=== PATIENT | male | born 1970 | race Caucasian/White ===

== ENCOUNTER 2020-06-26 06:02 | Emergency (ER) | payer BC ==
[~2020-06-26] VITALS: Ht 177.8 cm; Wt 91.0 kg
[~2020-06-26 06:02] MED LIST: GEN0.3OS OP; METO5TAB98 PO; OMEP-84 PO; SUCR1TAB28 PO; ZOF4T PO
[2020-06-26 06:42] LABS: BASOPHILS % (AUTO) 0.2 % (0-1); EOSINOPHILS % (AUTO) 0 % (0-6); HEMATOCRIT 42.1 % (42.0-52.0); HEMOGLOBIN 13.8 g/dl (14.0-17.9); LYMPHOCYTES % (AUTO) 6.9 % (21-51); MEAN CORPUSCULAR HEMOGLOBIN 28.1 PG (27.0-31.0); MEAN CORPUSCULAR HGB CONC 32.8 g/dL (33.0-36.5); MEAN CORPUSCULAR VOLUME 85.8 FL (78-98); MEAN PLATELET VOLUME 8.3 FL (7.4-10.4); MONOCYTES # (AUTO) 0.4 X10'3 (0-0.9); MONOCYTES % (AUTO) 2.9 % (2-12); NEUTROPHILS # (AUTO) 12.8 X10'3 (1.8-7.7); PLATELET COUNT 263 X10'3 (140-440); RED BLOOD COUNT 4.91 X10'6 (4.70-6.10); RED CELL DISTRIBUTION WIDTH 12.5 % (11.5-14.5); WHITE BLOOD COUNT 14.2 X10'3 (4.5-11.0)
[2020-06-26 06:45] LABS: ALANINE AMINOTRANSFERASE 23 U/L (12-78); ALBUMIN 4.1 G/DL (3.4-5.0); ALKALINE PHOSPHATASE 68 IU/L (46-116); ANION GAP 8 (8-16); ASPARTATE AMINO TRANSFERASE 17 U/L (10-37); BILIRUBIN,TOTAL 0.9 MG/DL (0.1-1.0); BLOOD UREA NITROGEN 12 MG/DL (7-18); BUN/CREATININE RATIO 11.5 (5.4-32.0); CALCIUM 9.3 MG/DL (8.5-10.1); CHLORIDE 102 MMOL/L (99-107); CREATININE 1.04 MG/DL (0.60-1.10); GLUCOSE 197 MG/DL (70-104); LIPASE 94 U/L (73-393); POTASSIUM 3.9 MMOL/L (3.5-5.1); SODIUM 136 MMOL/L (135-145); TOTAL CARBON DIOXIDE 25.6 MMOL/L (24-32); TOTAL PROTEIN 8.3 G/DL (6.4-8.2); eGFR 76 ML/MIN
[2020-06-26] MEDS ORDERED: ondansetron/PF 4mg/2ml inj IV ONE (06:45)
[2020-06-26] MEDS ORDERED: LORazepam 2 mg/ml vial IV ONE (06:45)
[2020-06-26] MEDS ORDERED: pantoprazole 40 MG vial IV ONE (06:45)
[2020-06-26] MEDS ORDERED: normal saline 1000ML IV soln IVB ONE (06:45)
[2020-06-26] MEDS ORDERED: ONDA8TAB13 PO (09:27)
[2020-06-26] MEDS ORDERED: PANT-47 PO (09:27)
[2020-06-26 10:03] VITALS: BP 132/90
--- NOTE | 2020-06-26 10:05 | NUR ---
Attempted to call pt's sig other, Chelsie, at the number provided. No answer; left message
== END 2020-06-26 10:40 | disposition home or self-care (01) ==
LOC: ER 06:02
DX: R10.13 Epigastric pain (principal); R11.2 Nausea with vomiting, unspecified; R10.31 Right lower quadrant pain; R10.32 Left lower quadrant pain; K21.9 Gastro-esophageal reflux disease without esophagitis; Z72.89 Other problems related to lifestyle; Z79.2 Long term (current) use of antibiotics; Z79.899 Other long term (current) drug therapy
CPT/HCPCS: 36415; 71045; 80053; 83690; 85025; 96361; 96374; 96375; 99284; C9113; J2060; J2405; J7030; 99285

== ENCOUNTER 2024-05-01 20:15 | Inpatient (IN) | payer BC ==
[~2024-05-01] VITALS: Ht 177.8 cm; Wt 93.2 kg
[~2024-05-01 20:15] MED LIST changes: +ONDA-245 PO; +PANT-47 PO
[2024-05-01] MEDS: proCHLORperazine 10 MG/2 ml inj IV ONE (21:10)
[2024-05-01] MEDS: famotidine/PF 10 mg/ml inj IV ONE (21:13)
[2024-05-01] MEDS: LIDOcaine 2% Viscous 15ml cup MM ONE (21:14)
[2024-05-01] MEDS: mag hydrox/Alum hydrox/simeth 30ml oral suspension PO ONE (21:14)
[2024-05-01 21:21] LABS: BASOPHILS % (AUTO) 0.2 % (0-1); EOSINOPHILS % (AUTO) 0 % (0-6); HEMATOCRIT 43.9 % (42.0-52.0); HEMOGLOBIN 14.6 g/dl (14.0-17.9); LYMPHOCYTES # (AUTO) 0.9 X10'3 (1.1-4.8); LYMPHOCYTES % (AUTO) 5.4 % (21-51); MEAN CORPUSCULAR HEMOGLOBIN 28.6 PG (27.0-31.0); MEAN CORPUSCULAR HGB CONC 33.2 g/dL (33.0-36.5); MEAN PLATELET VOLUME 7.8 FL (7.4-10.4); MONOCYTES # (AUTO) 0.3 X10'3 (0-0.9); MONOCYTES % (AUTO) 1.7 % (2-12); NEUTROPHILS # (AUTO) 15.9 X10'3 (1.8-7.7); NEUTROPHILS % (AUTO) 92.7 % (42-75); PLATELET COUNT 289 X10'3 (140-440); RED CELL DISTRIBUTION WIDTH 13.1 % (11.5-14.5); WHITE BLOOD COUNT 17.2 X10'3 (4.5-11.0)
[2024-05-01 21:40] LABS: ALANINE AMINOTRANSFERASE 15 U/L (12-78); ALBUMIN 4.1 G/DL (3.4-5.0); ALKALINE PHOSPHATASE 59 IU/L (46-116); ANION GAP 12 (8-16); ASPARTATE AMINO TRANSFERASE 17 U/L (10-37); BLOOD UREA NITROGEN 11 MG/DL (7-18); BUN/CREATININE RATIO 9.3 (10.0-20.0); CALCIUM 9.4 MG/DL (8.5-10.1); CHLORIDE 100 MMOL/L (99-107); CREATININE 1.18 MG/DL (0.60-1.10); GLUCOSE 166 MG/DL (70-104); SODIUM 135 MMOL/L (135-145); TOTAL CARBON DIOXIDE 23.2 MMOL/L (24-32); TOTAL PROTEIN 8.4 G/DL (6.4-8.2); eCRCL 76 ML/MIN; eGFR 65 ML/MIN
[2024-05-01 21:46] LABS: PRO BRAIN NATRIURETIC PEPTIDE 276 PG/ML (0-125)
[2024-05-01] MEDS: LORazepam 2 mg/ml vial IV ONE (22:15)
[2024-05-01] MEDS: normal saline 1000ml 1,000 ML IV ONE (22:15)
[2024-05-01] MEDS: fentaNYL/PF 50MCG/1 ML 2ML syringe IV ONE (22:16)
[2024-05-02] MEDS ORDERED: magnesium Cl slow-release 64mg tablet PO PRN (01:30)
[2024-05-02] MEDS ORDERED: potassium Cl 20 mEq SR tablet PO PRN ×2 (01:30)
[2024-05-02] MEDS ORDERED: potassium Cl 40MEQ/1/2NS 520ml 520 ML IV PRN (01:30)
[2024-05-02] MEDS ORDERED: HYDROcodone/acetaminophen 5mg/325mg tablet PO PRN (01:30)
[2024-05-02] MEDS ORDERED: mag hydrox/Alum hydrox/simeth 30ml oral suspension PO PRN (01:30)
[2024-05-02] MEDS ORDERED: magnesium sulf-water 2g/50mL 50 ML IV PRN (01:30)
[2024-05-02] MEDS ORDERED: acetaminophen 325mg tablet PO PRN ×2 (01:30)
[2024-05-02] MEDS ORDERED: magnesium sulf-water 4G/100mL 100 ML IV PRN (01:30)
[2024-05-02] MEDS ORDERED: metoclopramide 5 mg/ml inj IV PRN (01:30)
[2024-05-02] MEDS ORDERED: METH-603 PO (01:52)
[2024-05-02] MEDS ORDERED: ATOR20TA66 PO (01:53)
[2024-05-02] MEDS: normal saline 1000ml 1,000 ML IV SCH (02:30)
[2024-05-02 02:40] LABS: URINE AMPHETAMINE SCREEN NEGATIVE (Neg); URINE BARBITUATE SCREEN NEGATIVE (Neg); URINE BENZODIAZEPINES SCREEN NEGATIVE (Neg); URINE CANNABINOID SCREEN POSITIVE (Neg); URINE COCAINE SCREEN NEGATIVE (Neg); URINE METHADONE SCREEN POSITIVE (Neg); URINE OPIATE SCREEN NEGATIVE (Neg); URINE PHENCYCLIDINE SCREEN NEGATIVE (Neg)
[2024-05-02] MEDS: ondansetron/PF 4mg/2ml inj IV PRN (02:41)
[2024-05-02] MEDS: HYDROcodone/acetaminophen 10/325mg tab PO PRN (02:42)
[2024-05-02] MEDS ORDERED: ONDA-245 PO (02:42)
[2024-05-02 03:16] VITALS: RESP 18; O2SAT 98
[2024-05-02 03:32] VITALS: BP 137/79; PULSE 52; RESP 18; TEMP 98; O2SAT 98
[2024-05-02 06:00] VITALS: BP 123/75; PULSE 67; RESP 16; TEMP 98.9; O2SAT 98
[2024-05-02 06:19] LABS: MAGNESIUM 1.8 MG/DL (1.5-2.4); POTASSIUM 3.6 MMOL/L (3.5-5.1)
[2024-05-02 06:43] LABS: HEMOGLOBIN A1C 5.3 % (4.5-6.2)
[2024-05-02] MEDS: pantoprazole 40 MG vial IV SCH ×2 (07:24→13:13)
[2024-05-02] MEDS: K and/or MAG REPLACEMENT MC SCH (07:25)
[2024-05-02 10:00] VITALS: BP 98/43; PULSE 56; RESP 16; TEMP 99.6; O2SAT 98
[2024-05-02] MEDS: methadone 10mg tablet PO SCH (13:13)
[2024-05-02 18:00] VITALS: BP 102/59; PULSE 53; RESP 16; TEMP 97.6; O2SAT 96
[2024-05-02] MEDS ORDERED: methadone 10mg tablet PO SCH (20:00)
[2024-05-02 21:05] LABS: TOTAL CELLS COUNTED 100
[2024-05-02 21:07] LABS: PLATELET ESTIMATE NORMAL
[2024-05-02 22:00] VITALS: BP 108/61; PULSE 51; RESP 16; TEMP 97.8; O2SAT 98
[2024-05-02 23:34] LABS: BILIRUBIN,URINE NEGATIVE (Neg); CLARITY,URINE CLEAR (Clear); COLOR,URINE YELLOW (Yellow); GLUCOSE, URINE NEGATIVE (Neg); KETONES,URINE NEGATIVE (Neg); LEUKOCYTE ESTERASE ,URINE NEGATIVE (Neg); NITRITES, URINE NEGATIVE (Neg); OCCULT BLOOD,URINE NEGATIVE (Neg); PROTEIN,URINE NEGATIVE (Neg); UROBILINOGEN,URINE 0.2 E.U/dL (0.2-1.0)
[2024-05-02 23:39] LABS: UA COLLECTION TYPE NON-SPECIFIED
[2024-05-03 06:00] VITALS: BP 126/82; PULSE 51; RESP 16; TEMP 97.2; O2SAT 97
[2024-05-03 07:25] LABS: ALBUMIN 3.1 G/DL (3.4-5.0); ANION GAP 9 (8-16); BLOOD UREA NITROGEN 8 MG/DL (7-18); BUN/CREATININE RATIO 8.8 (10.0-20.0); CHLORIDE 107 MMOL/L (99-107); CREATININE 0.91 MG/DL (0.60-1.10); GLUCOSE 78 MG/DL (70-104); MAGNESIUM 1.8 MG/DL (1.5-2.4); PHOSPHORUS 2.6 MG/DL (2.3-4.5); POTASSIUM 3.9 MMOL/L (3.5-5.1); SODIUM 138 MMOL/L (135-145); TOTAL CARBON DIOXIDE 21.6 MMOL/L (24-32); eCRCL 98 ML/MIN; eGFR 87 ML/MIN
[2024-05-03 08:07] LABS: BASOPHILS # (AUTO) 0.1 X10'3 (0-0.2); BASOPHILS % (AUTO) 0.6 % (0-1); EOSINOPHILS # (AUTO) 0.1 X10'3 (0-0.9); HEMATOCRIT 40.5 % (42.0-52.0); LYMPHOCYTES # (AUTO) 3.3 X10'3 (1.1-4.8); LYMPHOCYTES % (AUTO) 32.7 % (21-51); MEAN CORPUSCULAR HEMOGLOBIN 28.2 PG (27.0-31.0); MEAN CORPUSCULAR HGB CONC 32.1 g/dL (33.0-36.5); MEAN CORPUSCULAR VOLUME 87.9 FL (78-98); MEAN PLATELET VOLUME 7.5 FL (7.4-10.4); MONOCYTES # (AUTO) 0.8 X10'3 (0-0.9); MONOCYTES % (AUTO) 7.7 % (2-12); NEUTROPHILS # (AUTO) 5.9 X10'3 (1.8-7.7); PLATELET COUNT 208 X10'3 (140-440); RED BLOOD COUNT 4.61 X10'6 (4.70-6.10); RED CELL DISTRIBUTION WIDTH 12.9 % (11.5-14.5); WHITE BLOOD COUNT 10.2 X10'3 (4.5-11.0)
[2024-05-03 10:00] VITALS: BP 144/87; PULSE 55; RESP 20; TEMP 98; O2SAT 98
[2024-05-03] MEDS ORDERED: PANT40TA54 PO (12:41)
== END 2024-05-03 15:46 | disposition home or self-care (01) | DRG 391 ==
LOC: ER 20:15 → ED HOLD 05-02 01:32 → ORTHO 4S 05-02 02:35
PROVIDERS: ADMIT Surgery Surgical Critical Care; ATTEND Family Medicine
PROC: BW211ZZ Computerized Tomography (CT Scan) of Abdomen and Pelvis using Low Osmolar Contrast (ICD-10-PCS; principal; 2024-05-02)
DX: K29.00 Acute gastritis without bleeding (principal); N17.0 Acute kidney failure with tubular necrosis; D72.823 Leukemoid reaction; K21.9 Gastro-esophageal reflux disease without esophagitis; Z79.899 Other long term (current) drug therapy
CPT/HCPCS: 36415; 71045; 74176; 80048; 80053; 80305; 81003; 83036; 83735; 83880; 84100; 84132; 84145; 84484; 85007; 85025; 87081; 93005; 96374; 96375; 99285; G0378; J0780; J2060; J2405; J2470; J3010; J3490; J7030

== ENCOUNTER 2024-11-06 22:48 | Inpatient (IN) | payer BC ==
[~2024-11-06] VITALS: Ht 177.8 cm; Wt 91.0 kg
[~2024-11-06 22:48] MED LIST changes: +ATOR20TA66 PO; -GEN0.3OS OP; +METH-603 PO; -METO5TAB98 PO; -OMEP-84 PO; -PANT-47 PO; +PANT40TA54 PO; -SUCR1TAB28 PO; -ZOF4T PO
--- NOTE | 2024-11-06 22:52 | ELECTROCARDIOGRAPH REPORT ---
[facility] Test Date: 2024-11-06 Test Time: 22:49:05 Pat Name: ADELITA CSATRO Department: SHORT STAY 1ST FLOOR Room: [place] [address] Gender: M Emergency Department Aide: FINESSE : 1970 Requested By: MARELY SINGH Order Number: [id number] Reading MD: Dr. Renetta Alcaraz Measurements Intervals [place] Rate: 55 P: 64 NV: 149 QRS: 7 QRSD: 104 T: 9 QT: 462 QTc: 442 Interpretive Statements Sinus rhythm Left ventricular hypertrophy Electronically Signed On 11-07-2024 18:48:[address] Renetta Alcaraz Please click the below link to view image of tracing.
[2024-11-06 23:06] LABS: BASOPHILS # (AUTO) 0.1 X10'3 (0-0.2); BASOPHILS % (AUTO) 0.4 % (0-1); EOSINOPHILS # (AUTO) 0.1 X10'3 (0-0.9); EOSINOPHILS % (AUTO) 0.4 % (0-6); HEMATOCRIT 39.1 % (42.0-52.0); LYMPHOCYTES # (AUTO) 2.1 X10'3 (1.1-4.8); LYMPHOCYTES % (AUTO) 14.8 % (21-51); MEAN CORPUSCULAR HEMOGLOBIN 28.4 PG (27.0-31.0); MEAN CORPUSCULAR HGB CONC 33.2 g/dL (33.0-36.5); MEAN CORPUSCULAR VOLUME 85.4 FL (78-98); MEAN PLATELET VOLUME 7.6 FL (7.4-10.4); MONOCYTES # (AUTO) 0.7 X10'3 (0-0.9); MONOCYTES % (AUTO) 5.3 % (2-12); NEUTROPHILS # (AUTO) 11.3 X10'3 (1.8-7.7); NEUTROPHILS % (AUTO) 79.1 % (42-75); PLATELET COUNT 300 X10'3 (140-440); RED BLOOD COUNT 4.57 X10'6 (4.70-6.10); RED CELL DISTRIBUTION WIDTH 12.6 % (11.5-14.5); WHITE BLOOD COUNT 14.2 X10'3 (4.5-11.0)
[2024-11-06 23:19] LABS: ALANINE AMINOTRANSFERASE 17 U/L (12-78); ALBUMIN 3.7 G/DL (3.4-5.0); ALBUMIN/GLOBULIN RATIO 1.2 (1.1-1.5); ALKALINE PHOSPHATASE 62 IU/L (46-116); ANION GAP 7 (8-16); ASPARTATE AMINO TRANSFERASE 15 U/L (10-37); BILIRUBIN,TOTAL 0.5 MG/DL (0.1-1.0); BLOOD UREA NITROGEN 15 MG/DL (7-18); BUN/CREATININE RATIO 14.2 (10.0-20.0); CALCIUM 8.9 MG/DL (8.5-10.1); CHLORIDE 103 MMOL/L (99-107); CREATININE 1.06 MG/DL (0.60-1.10); GLUCOSE 165 MG/DL (70-104); POTASSIUM 3.8 MMOL/L (3.5-5.1); SODIUM 138 MMOL/L (135-145); TOTAL CARBON DIOXIDE 27.8 MMOL/L (24-32); TOTAL PROTEIN 6.9 G/DL (6.4-8.2); eCRCL 84 ML/MIN; eGFR 73 ML/MIN
[2024-11-06 23:26] LABS: PRO BRAIN NATRIURETIC PEPTIDE 93 PG/ML (0-125)
[2024-11-07] MEDS: ondansetron/PF 4mg/2ml inj IV ONE (00:28)
--- NOTE | 2024-11-07 00:32 | RADIOLOGY REPORT ---
Clinical History CP Comparison None Technique: One view Without Contrast MATTHEWADELITA, [id number] FINDINGS: The aorta is within normal limits. The heart size is within normal limits. Lungs are clear. No di screte osseous lesion is noted. IMPRESSION: No evidence of acute cardiopulmonary disease. This report was electronically signed by Jonathan Morillo MD on 11/07/2024 12:29:08 AM.
--- NOTE | 2024-11-07 01:01 | Physician Documentation ---
History of Present Illness ~ Chief Complaint: Chest Pain Stated Complaint: NAUSEA Time Seen by MD: 00:15 [facility] Medical Doctor: [facility] Mode of Arrival: EMS HPI Reviewed discharge summary April 2024 gastritis intractable nausea vomiting 54-year-old male history of cyclic vomiting/gastritis opiate use disorder on methadone presenting for several hours of vomiting. Similar to prior episodes Medication Reconciliation Allergies: Coded Allergies: No Known Allergies (Unverified , 11/07/24) Scheduled Atorvastatin Calcium (LIPITOR tablet), 1 TAB PO HS, (Reported) Methadone Hcl* (Dolophine*), 22.5 MG PO BID, (Reported) Ondansetron 8mg ODT (Ondansetron Odt), 1 TAB PO TID, (Reported) Pantoprazole Sodium (Pantoprazole Sodium), 40 MG PO BKF Past Medical History Past Medical History: Gastritis, GERD Past Surgical History: noncontributory Patient History: Patient reports no known family medical history. Alcohol Use: Occasionally Drug Use: none Lives In: Home Review of Systems All Other Systems at this time: Reviewed and Negative Physical Exam Vital Signs: Temperature: 98.6, Source: Oral, Heart Rate: 55, Respiratory Rate: 13, BP: 125/83, Pulse Oximetry: 98, Weight: 91.000 Physical Exam Nontoxic Abdomen soft mild epigastric discomfort. No guarding no rebound Neuro awake alert oriented Progress Progress Note Independent interpretation of labs show leukocytosis 30423 likely from vomiting Creatinine within normal limits Results/Orders Results/Orders Orders - MARELY SINGH MD Chest,Single View (11/06/24 22:49) Monitor (11/06/24 22:49) Saline Lock (11/06/24 22:49) Oxygen (11/06/24 22:49) Hs Troponin I W Calculations (11/07/24 01:49) * Miscellaneous Nursing Orders (11/07/24 01:36) Completed Orders - MARELY SINGH MD Chest,Single View (11/06/24 22:49) Cbc/Diff (11/06/24 22:49) PBNP (11/06/24 22:49) Electrocardiogram (11/06/24 22:49) CMP (11/06/24 22:49) Hs Troponin I W Calculations (11/06/24 22:49) Hs Troponin I W Calculations (11/07/24 00:49) Ondansetron Inj. (Zofran 4mg/2ml Vial) (11/07/24 00:20) Olanzapine Im (Zyprexa I.M. Im On (11/07/24 01:10) Pantoprazole 40mg Iv (Protonix 40mg Iv) (11/07/24 01:10) Olanzapine Im (Zyprexa I.M. Im On (11/07/24 02:45) Medications Received in ER Medications (Trade) Dose Ordered Sig/Andrés Route PRN Reason Start Time Stop Time Status Last Admin Dose Admin (Zofran 4mg/2ml vial) 4 mg ONCE ONCE IV 11/07/24 00:20 11/07/24 00:26 DC 11/07/24 00:28 4 MG (ZyPREXA I.M. IM ONLY) 5 mg ONCE ONCE IM 11/07/24 01:10 11/07/24 01:16 DC 11/07/24 01:47 5 MG (Protonix 40mg IV) 40 mg ONCE ONCE IV 11/07/24 01:10 11/07/24 01:16 DC 11/07/24 01:25 40 MG (ZyPREXA I.M. IM ONLY) 1.25 mg ONCE ONCE IM 11/07/24 02:45 11/07/24 02:49 DC 11/07/24 03:10 1.25 MG Vital Signs 11/06/24 11/06/24 11/06/24 11/07/24 22:49 22:59 23:00 01:51 Temp 98.6 98.6 98.6 Pulse 56 55 55 Resp 19 10 13 10 B/P (MAP) 125/83 125/83 (97) 128/57 (80) Pulse Ox 98 98 98 Laboratory Tests Test 11/06/24 22:55 11/07/24 00:55 White Blood Count 14.2 H Red Blood Count 4.57 L Hemoglobin 13.0 L Hematocrit 39.1 L Mean Corpuscular Volume 85.4 Mean Corpuscular Hemoglobin 28.4 Mean Corpuscular Hemoglobin Concent 33.2 Red Cell Distribution Width 12.6 Platelet Count 300 Mean Platelet Volume 7.6 Neutrophils (%) (Auto) 79.1 H Lymphocytes (%) (Auto) 14.8 L Monocytes (%) (Auto) 5.3 Eosinophils (%) (Auto) 0.4 Basophils (%) (Auto) 0.4 Neutrophils # (Auto) 11.3 H Lymphocytes # (Auto) 2.1 Monocytes # (Auto) 0.7 Eosinophils # (Auto) 0.1 Basophils # (Auto) 0.1 CBC Comment Sodium Level 138 Potassium Level 3.8 Chloride Level 103 Carbon Dioxide Level 27.8 Anion Gap 7 L Blood Urea Nitrogen 15 Creatinine 1.06 Estimated GFR/1.73 m2 73 BUN/Creatinine Ratio 14.2 Glucose Level 165 H Calcium Level 8.9 Total Bilirubin 0.5 Aspartate Amino Transf (AST/SGOT) 15 Alanine Aminotransferase (ALT/SGPT) 17 Alkaline Phosphatase 62 Troponin I High Sensitivity 5 5 Pro-B-Type Natriuretic Peptide 93 Total Protein 6.9 Albumin 3.7 Globulin 3.2 Albumin/Globulin Ratio 1.2 Chemistry Comments Troponin I High Sens Percent Delta 0 Troponin I Hi Sens Absolute Change 0 EKG/XRAY/CT/US/VASC/MRI EKG : Additional Comment EKG independently interpreted by myself time 10:49 p.m. indication chest pain sinus bradycardia rate 55 normal axis normal intervals no ST or T-wave abnormality Medical Decision Making Additional info obtained from: old records Additional Information Gastroenteritis, gastritis, gastroparesis, cyclic vomiting Departure Disposition: HOME / SELF CARE / HOMELESS Impression: Primary Impression: Intractable vomiting Additional Instructions: Continue taking the medications I prescribed you. They will help with your symptoms. Return to the emergency department if you have any worsening of your symptoms Referrals: NO PRIMARY CARE PROVIDER (PCP) Prescriptions Olanzapine* (Zyprexa Zydis Odt*) 5 Mg Tab.rapdis 1 TAB PO Q8H PRN for nausea/vomiting for 10 Days, #30 TAB Prov: MARELY SINGH MD 11/07/24 Signature Scribe Signature: na Attestation: MARELY Wang MD November 07, 2024 01:01
[2024-11-07] MEDS: pantoprazole 40 MG vial IV ONE (01:25)
[2024-11-07] MEDS: OLANZapine **IM** 10 mg inj. IM ONE ×3 (01:47→04:33)
[2024-11-07] MEDS ORDERED: OLAN5TAB5 PO (03:14)
[2024-11-07] MEDS ORDERED: acetaminophen 325mg tablet PO PRN (05:00)
[2024-11-07] MEDS ORDERED: potassium Cl 40MEQ/1/2NS 520ml 520 ML IV PRN (05:00)
[2024-11-07] MEDS ORDERED: magnesium sulf-water 4G/100mL 100 ML IV PRN (05:00)
[2024-11-07] MEDS ORDERED: potassium Cl 20 mEq SR tablet PO PRN ×2 (05:00)
[2024-11-07] MEDS ORDERED: magnesium sulf-water 2g/50mL 50 ML IV PRN (05:00)
[2024-11-07] MEDS ORDERED: magnesium Cl slow-release 64mg tablet PO PRN (05:00)
[2024-11-07] MEDS: LIDOcaine 2% Viscous 15ml cup MM ONE (05:01)
[2024-11-07] MEDS: mag hydrox/Alum hydrox/simeth 30ml oral suspension PO ONE (05:01)
--- NOTE | 2024-11-07 05:11 | HISTORY AND PHYSICAL-Residence ---
History & Physical Providers to CC Resident Creating Document: ANYA ZARAGOZA, AARON ~ History of Present Illness Primary Medical Doctor: [facility] Reason for Admit\Complaint: Intractable vomiting History of Present Illness This is a 54-year-old male with a history of gastritis came to the ER with a chief complaint of abdominal pain, nausea, vomiting. The vomiting started yesterday about 4:00 p.m., he had more than 20 episodes of vomiting. The content of vomiting is food and water, denies any blood in the vomiting. The abdominal pain soon followed, located in the epigastric region, graded 10/10, sharp and burning type, nonradiating. Denies any fever. He denied any recent travel history. Also denied contact with people with similar complaints. He mentioned that he had an a burger for lunch yesterday. He presented with similar complaints in April 2024, denies any intermittent episodes between these two admissions. Allergies: Coded Allergies: No Known Allergies (Unverified , 11/07/24) Home Medications Home Medications Active Zyprexa Zydis Odt* (Olanzapine) 5 Mg Tab.rapdis 1 Tab PO Q8H PRN 10 Days Pantoprazole Sodium 40 Mg Tablet.dr 40 Mg PO BKF 30 Days Reported LIPITOR tablet (Atorvastatin Calcium) 20 Mg Tablet 1 Tab PO HS 30 Days Dolophine* (Methadone HCl) 10 Mg Tablet 22.5 Mg PO BID 5 Days Past Medical History Past Medical History Gastritis Past Surgical History Surgical History Comment None FAMILY HISTORY History of heart attack in mother Family History Family History: Patient reports no known family medical history. Past Social History Social History Comment Denies any history of smoking Drinks alcohol occasionally, last drink a week ago, drank two shots Denies any history of drug use including marijuana lives with his partner. Smoking: Cigarettes Alcohol Use: Occasionally Drug Use: None Lives In: Home ROS All Other Systems: Reviewed and Negative Constitutional: Denies: no symptoms reported, see HPI, chills, diaphoresis, fever, malaise, weakness, other Eyes: Denies: no symptoms reported, see HPI, pain, discharge, blurred vision, double vision, itching, photophobia, redness, tearing, other ENT: Denies: no symptoms reported, see HPI, ear pain, ear bleeding, ear discharge, hearing loss, ear ringing, nose pain, nose bleeding, nose congestion, nose discharge, throat pain, throat swelling, voice change, mouth pain, mouth bleeding, mouth swelling, other Respiratory: Denies: no symptoms reported, see HPI, cough, orthopnea, shortness of breath, SOB with exertion, SOB at rest, stridor, wheezing, hemoptysis, pain with breathing, other Cardiovascular: Denies: no symptoms reported, see HPI, chest pain, left arm pain, diaphoresis, lightheadedness, syncope, edema, palpitations, irregular heart rate, other Gastrointestinal: Reports: abdominal pain, nausea, vomiting Genitourinary: Denies: no symptoms reported, see HPI, burning, discharge, dysuria, frequency, flank pain, hematuria, incontinence, pain, decreased urine output, urgency, other Male Genitalia: Denies: no symptoms reported, see HPI, penile discharge, penile sore, testicular pain, testicular swelling, other Neurological: Denies: no symptoms reported, see HPI, speech problem, headache, dizziness, fainting, tingling, left sided numbness, right sided numbness, left sided weakness, right sided weakness, problems walking, unable to move lower ext, unable to move upper ext, petit mal seizures, tonic-clonic seizures, cognitive dysfunction, other Musculoskeletal: Denies: no symptoms reported, see HPI, pain, swelling, back pain, gout, joint pain, joint swelling, muscle pain, muscle swelling, muscle stiffness, neck pain, other Exam Vitals: Vital Signs Date Time Temp Pulse Resp B/P (MAP) Pulse Ox O2 Delivery O2 Flow Rate FiO2 11/07/24 04:37 98.6 47 8 148/79 (102) 98 General: General: Awake and Alert, no acute distress. HEENT: Conjunctiva pink, Sclera clear, Mucus Membranes moist. Resp: Bilateral lung sounds are clear. Heart: Regular Rate and rhythm, normal S1 and S2 without murmur, rub or gallop. Abdomen: tenderness in the epigastric region, negative Alejo's, no guarding, no rigidity, bowel sounds heard Extremities: No cyanosis,clubbing or edema. ULTRASONOGRAPHER: Conscious, coherent, oriented x3. No motor or sensory deficits. No cranial nerve deficits Skin: Warm and Dry. No purpura noted Diagnostic Data Last Recorded Lab Results: 11/06/24225411/06/242254 Advance Care Planning Advanced Care plannin - 30 Minutes (I spent 17 minutes in discussing various resuscitative measures, the patient chose to be full code.) Additional Plan Assessment this is a 54-year-old male with a history of gastritis presented to the ER with a chief complaint of abdominal pain and vomiting. Patient is being admitted for intractable vomiting Plan Gastritis Intractable nausea/vomiting Possible cannabinoid hyperemesis syndrome. Is received viscous lidocaine and 40 mg pantoprazole, ondansetron in the ER Previously U tox positive for cannabinoids. Repeat U tox and alcohol ordered. Zofran/metoclopramide p.r.n. Protonix 40 mg IV b.i.d. IV fluids NS@ 100 mL/hour CT abdomen ordered. Started on full liquid diet, advance as tolerated Reactive leukocytosis WBC 14.2 Code status: Full code DVT prophylaxis: Lovenox GI prophylaxis: Pantoprazole Diet: Liquid diet Line/tubes: Peripheral IV Status: Guarded Anya Zaragoza M.D PGY1 Attending Physicain Attestation Evaluation via HIPAA compliant AV device. I discussed the case with the resident and I agree with the resident's documentation. 54-year-old man with a second presentation of intractable nausea and vomiting with epigastric pain. Previous urine toxicology positive for cannabinoids. The treatment plan includes: Diagnostic evaluation to include CT abdomen and pelvis and serum lipase to determine the etiology of the patient's symptoms. Control of symptoms with antiemetic therapy to include droperidol (if on formulary) or haloperidol for the possibility of cannabinoid hyperemesis syndrome. Time spent 55 minutes. Date of Service: November 07, 2024 Billing Provider: BRENDA GLASS MD, PRAVAHIKA, RES November 07, 2024 05:11 BRENDA GLASS MD November 07, 2024 06:38
[2024-11-07] MEDS: normal saline 1000ml 1,000 ML IV SCH (05:27)
--- NOTE | 2024-11-07 05:51 | RADIOLOGY REPORT ---
EXAM: CT Abdomen and Pelvis Without Intravenous Contrast CLINICAL INDICATION: Abdominal pain and vomiting TECHNIQUE: Axial computed tomography images of the abdomen and pelvis without intravenous contrast. This CT exam was performed using one or more of the following dose reduction techniques: automated exposure control, adjustment of the mA and/or kV according to patient size, and/or use of iterative r econstruction technique. CONTRAST: COMPARISON: CT CT ABDOMEN PELVIS on DOS: 05/01/24 FINDINGS: LUNG BASES: Unremarkable. No mass. No consolidation. ABDOMEN: LIVER: Hepatomegaly with fatty infiltration. GALLBLADDER AND BILE DUCTS: Unremarkable. No calcified stones. No ductal dilation. PANCREAS: Unremarkable. No ductal dilation. SPLEEN: Unremarkable. No splenomegaly. ADRENALS: Unremarkable. No mass. KIDNEYS AND URETERS: Unremarkable. No stones within either kidney. No hydronephrosis. STOMACH AND BOWEL: Fecal retention in the colon consistent with constipation. No obstruction. No mucosal thickening. PELVIS: APPENDIX: No findings to suggest acute appendicitis. BLADDER: Unremarkable. No stones. REPRODUCTIVE: Unremarkable as visualized. ABDOMEN and PELVIS: INTRAPERITONEAL SPACE: Unremarkable. No free air. No significant fluid collection. BONES/JOINTS: Moderate compression deformity of L1 vertebral body, likely chronic. No dislocation. SOFT TISSUES: Umbilical hernia containing fat. VASCULATURE: Unremarkable. No abdominal aortic aneurysm. LYMPH NODES: Unremarkable. No enlarged lymph nodes. OTHER FINDINGS: . . IMPRESSION: 1. Hepatomegaly with fatty infiltration. 2. Umbilical hernia containing fat. 3. Fecal retention in the colon consistent with constipation. 4. No obstructive uropathy.
[2024-11-07] MEDS: haloperidol lactate 5mg/ml inj IM ONE (06:40)
[2024-11-07 07:56] LABS: ETHANOL < 10 MG/DL (<10); LIPASE 29 U/L (16-77); MAGNESIUM 1.9 MG/DL (1.5-2.4); POTASSIUM 4.2 MMOL/L (3.5-5.1)
[2024-11-07] MEDS: K and/or MAG REPLACEMENT MC SCH (08:00)
[2024-11-07] MEDS: docusate sod 100mg capsule PO SCH (08:00)
[2024-11-07] MEDS: pantoprazole 40 MG vial IV SCH (08:46)
[2024-11-07] MEDS: enoxaparin 40mg/0.4ml syringe SUBCUT SCH (08:47)
[2024-11-07 08:59] LABS: HEMOGLOBIN A1C 5.6 % (4.5-6.2)
[2024-11-07 09:11] LABS: BASOPHILS % (AUTO) 0.1 % (0-1); EOSINOPHILS % (AUTO) 0.1 % (0-6); HEMATOCRIT 42.7 % (42.0-52.0); HEMOGLOBIN 13.8 g/dl (14.0-17.9); LYMPHOCYTES # (AUTO) 1.1 X10'3 (1.1-4.8); LYMPHOCYTES % (AUTO) 7.8 % (21-51); MEAN CORPUSCULAR HGB CONC 32.4 g/dL (33.0-36.5); MEAN CORPUSCULAR VOLUME 86.6 FL (78-98); MONOCYTES # (AUTO) 0.6 X10'3 (0-0.9); MONOCYTES % (AUTO) 3.9 % (2-12); NEUTROPHILS # (AUTO) 12.7 X10'3 (1.8-7.7); NEUTROPHILS % (AUTO) 88.1 % (42-75); PLATELET COUNT 242 X10'3 (140-440); RED BLOOD COUNT 4.93 X10'6 (4.70-6.10); WHITE BLOOD COUNT 14.4 X10'3 (4.5-11.0)
[2024-11-07 10:32] VITALS: BP 149/82; PULSE 56; RESP 16; TEMP 98.2; O2SAT 99
[2024-11-07 11:00] VITALS: BP 122/69; PULSE 47; RESP 16; TEMP 98.4; O2SAT 97
[2024-11-07] MEDS: ondansetron/PF 4mg/2ml inj IV PRN (13:46)
[2024-11-07] MEDS: mag hydrox/Alum hydrox/simeth 30ml oral suspension PO PRN (13:46)
[2024-11-07 18:00] VITALS: BP 125/71; PULSE 50; RESP 18; TEMP 93.7; O2SAT 97
[2024-11-07] MEDS: atorvastatin 20mg tablet PO SCH (20:50)
[2024-11-07] MEDS: methadone 10mg tablet PO SCH (20:50)
[2024-11-07] MEDS: polyethylene glycol 3350 17gm powd pack PO SCH (20:51)
[2024-11-07 22:00] VITALS: BP 90/52; PULSE 65; RESP 16; TEMP 97.4; O2SAT 95
[2024-11-08] MEDS: magnesium hydroxide 30ml (MOM) UD suspension PO PRN (02:22)
[2024-11-08 04:59] LABS: BASOPHILS % (AUTO) 0.4 % (0-1); EOSINOPHILS % (AUTO) 0.4 % (0-6); HEMATOCRIT 37.3 % (42.0-52.0); HEMOGLOBIN 12.3 g/dl (14.0-17.9); LYMPHOCYTES # (AUTO) 3.4 X10'3 (1.1-4.8); LYMPHOCYTES % (AUTO) 31.2 % (21-51); MEAN CORPUSCULAR HEMOGLOBIN 28.3 PG (27.0-31.0); MEAN CORPUSCULAR VOLUME 85.7 FL (78-98); MEAN PLATELET VOLUME 7.9 FL (7.4-10.4); MONOCYTES % (AUTO) 9.6 % (2-12); NEUTROPHILS # (AUTO) 6.3 X10'3 (1.8-7.7); NEUTROPHILS % (AUTO) 58.4 % (42-75); PLATELET COUNT 224 X10'3 (140-440); RED BLOOD COUNT 4.35 X10'6 (4.70-6.10); RED CELL DISTRIBUTION WIDTH 12.8 % (11.5-14.5); WHITE BLOOD COUNT 10.9 X10'3 (4.5-11.0)
[2024-11-08 05:23] LABS: ANION GAP 8 (8-16); BLOOD UREA NITROGEN 10 MG/DL (7-18); BUN/CREATININE RATIO 12.5 (10.0-20.0); CALCIUM 8.1 MG/DL (8.5-10.1); CHLORIDE 109 MMOL/L (99-107); CHOL/HDL RATIO 3.4 (0.00-4.99); CHOLESTEROL 169 MG/DL (0-200); GLUCOSE 94 MG/DL (70-104); HDL CHOLESTEROL 49 MG/DL (35-60); LDL CHOLESTEROL 97 MG/DL (50-100); MAGNESIUM 2.1 MG/DL (1.5-2.4); POTASSIUM 3.9 MMOL/L (3.5-5.1); SODIUM 145 MMOL/L (135-145); TOTAL CARBON DIOXIDE 27.6 MMOL/L (24-32); TRIGLYCERIDES 99 MG/DL (20-135); eCRCL 112 ML/MIN; eGFR > 90 ML/MIN
[2024-11-08 06:00] VITALS: BP 92/50; PULSE 60; RESP 15; TEMP 97.7; O2SAT 100
[2024-11-08 10:00] VITALS: BP 122/68; PULSE 54; RESP 16; TEMP 98.3; O2SAT 96
[2024-11-08] MEDS ORDERED: aminophylline 500mg/20ml vial IV PRN (12:10)
[2024-11-08] MEDS ORDERED: nitroGLYCERIN 0.4mg SUBLingual tab SL PRN (12:10)
[2024-11-08] MEDS ORDERED: metoprolol tartrate 1mg/ml inj IV PRN (12:10)
[2024-11-08] MEDS: PERFLUTREN PROTEIN-A MICROSPHR (Optison) 0.22 MG/ML 3ML VIAL IV ONE (14:10)
[2024-11-08 14:15] LABS: BILIRUBIN,URINE NEGATIVE (Neg); CLARITY,URINE CLEAR (Clear); COLOR,URINE YELLOW (Yellow); GLUCOSE, URINE NEGATIVE (Neg); KETONES,URINE NEGATIVE (Neg); LEUKOCYTE ESTERASE ,URINE NEGATIVE (Neg); NITRITES, URINE NEGATIVE (Neg); OCCULT BLOOD,URINE TRACE-INTACT (Neg); PROTEIN,URINE NEGATIVE (Neg); UROBILINOGEN,URINE 0.2 E.U/dL (0.2-1.0)
[2024-11-08 14:34] LABS: URINE AMPHETAMINE SCREEN NEGATIVE (Neg); URINE BARBITUATE SCREEN NEGATIVE (Neg); URINE BENZODIAZEPINES SCREEN NEGATIVE (Neg); URINE CANNABINOID SCREEN POSITIVE (Neg); URINE COCAINE SCREEN NEGATIVE (Neg); URINE METHADONE SCREEN POSITIVE (Neg); URINE OPIATE SCREEN NEGATIVE (Neg); URINE PHENCYCLIDINE SCREEN NEGATIVE (Neg)
[2024-11-08 14:37] LABS: UA COLLECTION TYPE VOIDED
[2024-11-08 14:39] LABS: WBC,URINE 0-4 /HPF (0-4)
[2024-11-08 14:40] LABS: RBC,URINE 0-2 /HPF (0-2)
[2024-11-08 14:41] LABS: BACTERIA,URINE FEW /HPF (Neg); SQUAMOUS EPITHELIAL CELL,UR NONE SEEN /LPF (FEW)
--- NOTE | 2024-11-08 15:15 | PROGRESS NOTE- Residence ---
Progress Note - Resident Providers to CC Resident Creating Document: RENNY KUMAR, RES CC: ELVI MCLEOD MD ~ Antibiotic Timeout Antibiotic Ordered?: No Subjective Patient was examined at bedside. Patient states that his abdominal pain, nausea and vomitings is much improved and patient was more alert today. Patient states that he had pain that started in the back when he was trying to fix his computer that was quite heavy that radiated to the front of the chest mostly left side which was crushing in character with a severity of 9/10. Patient then started to have nausea with episodes of vomitings. Patient states that he has a history of hyperlipidemia and has been on Lipitor, his mother and father had diagnosis of CAD at about the same age in fact the mother had MS two years younger to his current age. Objective Vital Signs Date Time Temp Pulse Resp B/P (MAP) Pulse Ox O2 Delivery O2 Flow Rate FiO2 11/08/24 08:00 Room Air N/A 11/08/24 06:00 97.7 60 15 92/50 (64) 100 Result Diagram: 11/08/2442011/08/24420 General: Alert, awake, oriented, not in acute distress HEENT: PERRLA, no icterus, pallor, lymphadenopathy, carotid bruit Respiratory system: Bilateral vesicular breath sounds heard, no adventitious breath sounds CVS: S1-S2 heard, no murmurs/rubs/gallop GI: Soft, nontender, no organomegaly, no guarding/rigidity, bowel sounds present Neuro: No focal neurological deficits present, no spine tenderness Extremities: No edema cyanosis clubbing/deformities Skin: Warm and dry Assessment Assessment A 54-year-old male with past medical history of hyperlipidemia presented to the ED with the complaint of abdominal pain, vomitings. Patient was admitted for the evaluation management of acute gastritis. On the other hand patient would give a history that raises concern for evaluation for stable angina. Plan Plan Cannabinoid hyperemesis syndrome Acute gastritis, can not exclude CT abdomen: Hepatomegaly with fatty infiltration. Umbilical hernia containing fat. Fecal retention in the colon consistent with constipation. Continue IV Protonix b.i.d. Continue IV fluids at 100 cc/hour Strict avoidance of morphine and Ash Strong recommendation to quit marijuana Stable angina, under evaluation ACS, ruled out Negative troponins and EKG Lexiscan in a.m. Follow up with echo Hyperlipidemia LDL goal less than 70 LDL: 97 Continue atorvastatin 40 mg Cannabinoid use Substance abuse navigator, health and social care teacher consulted Reactive leukocytosis, resolved Code status: Full code DVT prophylaxis: Lovenox Diet: Clear Liquid diet, NPO after midnight Status: Guarded Disposition: Continue care in surgical floor, NPO after midnight, Lexiscan in a.m., follow up with echo Renny Kumar MD Internal Medicine, PGY 1 Date of Service: November 08, 2024 Billing Provider: ELVI MCLEOD MD, SIVA, RES November 08, 2024 15:15
[2024-11-08 18:00] VITALS: BP 117/66; PULSE 49; RESP 18; TEMP 99.1; O2SAT 99
[2024-11-08 22:00] VITALS: BP 119/74; PULSE 53; RESP 16; TEMP 97.6; O2SAT 97
[2024-11-09] VITALS (11 sets, daily range): BP systolic 132–148; BP diastolic 71–87; PULSE 49–94; RESP 14–18; TEMP 98; O2SAT 96–100
[2024-11-09] MEDS: Melatonin 3mg tablet PO ONE (01:39)
[2024-11-09 04:28] LABS: BASOPHILS # (AUTO) 0.1 X10'3 (0-0.2); BASOPHILS % (AUTO) 0.5 % (0-1); EOSINOPHILS # (AUTO) 0.1 X10'3 (0-0.9); EOSINOPHILS % (AUTO) 1.2 % (0-6); HEMATOCRIT 37.2 % (42.0-52.0); HEMOGLOBIN 12.3 g/dl (14.0-17.9); LYMPHOCYTES # (AUTO) 2.9 X10'3 (1.1-4.8); LYMPHOCYTES % (AUTO) 24.8 % (21-51); MEAN CORPUSCULAR HEMOGLOBIN 28.2 PG (27.0-31.0); MEAN CORPUSCULAR VOLUME 85.6 FL (78-98); MEAN PLATELET VOLUME 8.1 FL (7.4-10.4); MONOCYTES # (AUTO) 0.9 X10'3 (0-0.9); MONOCYTES % (AUTO) 7.3 % (2-12); NEUTROPHILS # (AUTO) 7.8 X10'3 (1.8-7.7); NEUTROPHILS % (AUTO) 66.2 % (42-75); PLATELET COUNT 239 X10'3 (140-440); RED BLOOD COUNT 4.35 X10'6 (4.70-6.10); RED CELL DISTRIBUTION WIDTH 13.1 % (11.5-14.5); WHITE BLOOD COUNT 11.9 X10'3 (4.5-11.0)
[2024-11-09 04:42] LABS: ALBUMIN 3.1 G/DL (3.4-5.0); ANION GAP 6 (8-16); BLOOD UREA NITROGEN 7 MG/DL (7-18); BUN/CREATININE RATIO 6.9 (10.0-20.0); CALCIUM 8.3 MG/DL (8.5-10.1); CHLORIDE 109 MMOL/L (99-107); CREATININE 1.01 MG/DL (0.60-1.10); GLUCOSE 84 MG/DL (70-104); MAGNESIUM 1.9 MG/DL (1.5-2.4); SODIUM 144 MMOL/L (135-145); TOTAL CARBON DIOXIDE 29.4 MMOL/L (24-32); eCRCL 88 ML/MIN; eGFR 78 ML/MIN
[2024-11-09] MEDS: regadenoson 0.4mg/5ml syringe IV PRN (10:07)
--- NOTE | 2024-11-09 11:57 | RADIOLOGY REPORT ---
Procedure: NM NM HAN SCAN Exam Date: 11/09/2024 09:33 AM Reason for study/Clinical History: chest pain Comparison Study: None Myocardial Perfusion Study with SPECT Technique: The patient received an intravenous injection of 8 mCi of technetium-99m sestamibi while at rest. After a short delay, SPECT tomographic images of the heart were obtained. The patient then went to the stress lab where they received an intravenous infusion of 0.4 mg lexiscan utilizing dacia dard protocol. 33 mCi of technetium-99m sestamibi was injected intravenously immediately after the start of the lexiscan infusion. Gated SPECT tomographic images of the heart were acquired and proces sed. Findings: No reversible perfusion defect. There is a fixed inferoseptal defect. No wall motion abnormality. End diastolic volume: 92 mL End systolic volume: 31 mL The left ventricular ejection fraction is 7 %. (normal greater than 50%) Impression: 1. No reversible defect. Fixed inferoseptal defect versus diaphragmatic attenuation 2. The left ventricular ejection fraction is 67 %.
--- NOTE | 2024-11-09 12:05 | CARDIOLOGY REPORT ---
APPROVED REPORT EXAM: Comprehensive 2D, Doppler, and color-flow Echocardiogram. Patient Location: 340 [address] Blood Pressure: 122/68 mmHg Heart Rate: 42 bpm Rhythm: SINUS BRADYCARDIA Indications CONGESTIVE HEART FAILURE 03/08 CHEST PAIN Miniature Model Maker: none Previous echo: none 2D Dimensions RVDd 3.7 cm LA Diam5.8 cm IVSd 0.9 (0.7-1.1cm) LVDd 4.3 cm PWd 0.9 (0.7-1.1cm) RA Major5.2 cm RA Minor3.9 cmLVOT Diameter 2.01 (1.8-2.4cm) IVC 24.94 mm M-Mode Dimensions Left Atrium(MM) 4.17 (2.5-4.0cm) Aortic Root 3.11 (2.2-3.7cm) Aortic Cusp Exc 2.12 (1.5-2.0cm) MV EPSS 0.3 (<0.5cm) Biplane 2D LA Volumes LA ESV Index 31.69 mL/m2 Aortic Valve AoV Peak Dimitris. 176.2 cm/s AoV VTI 37.1 cm AO Peak GR. 12.4 mmHg AO Mean GR. 6 mmHg LVOT VTI 32.20 cm LVOT Peak Dimitris. 140.5 cm/s REYES(VTI)/BSA 2.75 cm2/m2 REYES (VTI) 2.75 cm2 Mitral Valve MV E Velocity 116.3 cm/s MV Peak Gr. 7 mmHg MV DECEL TIME 224 ms MV A Velocity 57.1 cm/s MV PHT 64 ms E/A Ratio 2.0 MVA (PHT) 3.44 cm2 MV WZjn301.2 cm/s TDI Medial E' P. V 12.48 cm/s E/Medial E' 9.3 Tricuspid Valve TR P. Velocity 246 cm/s RAP ESTIMATE 10 mmHg TR Peak Gr. 24 mmHg RVSP 34 mmHg Pulmonary Vein S1 Velocity 68.5 cm/s D2 Velocity 49.2 cm/s PVa Otkneiyt23.1 cm/s PVa [id number] msec LEFT VENTRICLE Normal LV size and wall thickness. Overall systolic function is normal. LVEF is 60-65%. RIGHT VENTRICLE RV is mildly dilated in size with normal function. RVSP is estimated at 34 mmHg. ATRIA Left atrium is mildly dilated. Mobile interatrial septum - no flow detected. Right atrium size is nor mal. AORTIC VALVE Trileaflet AV appears mildly sclerotic without stenosis. Trivial insufficiency. MITRAL VALVE Mild MV annular calcification without stenosis. Trace regurgitation. TRICUSPID VALVE TV appears structurally normal with mild regurgitation. PULMONIC VALVE Normal PV without stenosis, physiologic insufficiency. GREAT VESSELS Aortic root is normal in size. IVC is dilated and collapses less than 50% with inspiration. PERICARDIUM Normal pericardium. No effusion. Other Information Study Quality: Adequate Conclusion Normal LV size and wall thickness. Overall systolic function is normal. LVEF is 60-65%. RV is mildly dilated in size with normal function. RVSP is estimated at 34 mmHg. Left atrium is mildly dilated. Mobile interatrial septum - no flow detected. Right atrium size is nor mal. Trileaflet AV appears mildly sclerotic without stenosis. Trivial insufficiency. Mild MV annular calcification without stenosis. Trace regurgitation. TV appears structurally normal with mild regurgitation. Normal pericardium. No effusion.
[2024-11-09] MEDS ORDERED: ATOR40TA71 PO (12:57)
[2024-11-09] MEDS ORDERED: PANT40TA54 PO (12:57)
--- NOTE | 2024-11-09 14:21 | DISCHARGE SUMMARY-Residence ---
Discharge Summary Providers to CC Resident Creating Document: RENNY KUMAR, RES CC: ELVI MCLEOD MD ~ Discharge Summary Assessment A 54-year-old male with past medical history of hyperlipidemia presented to the ED with the complaint of abdominal pain, vomitings. Patient was admitted for the evaluation management of acute gastritis. On the other hand patient would give a history that raises concern for evaluation for stable angina. Admission Diagnosis: intactable vomiting Hospital Course DATE OF ADMISSION: 11/07/24 DATE OF DISCHARGE: 11/09/24 Discharge Diagnosis\Comment: Cannabinoid induced hyperemesis syndrome Acute gastritis, can not exclude Stable angina, ruled out ACS, ruled out Hyperlipidemia Cannabinoid use Reactive leukocytosis, resolved Operations\Procedures: Lexiscan Consultants: None Complications: None Condition on DC: Stable New Medications: Pantoprazole Sodium (Pantoprazole Sodium) 40 Mg Tablet.dr 40 MG PO DAILY for 30 Days, #30 TAB.SR Changed Medications: Atorvastatin Calcium (Atorvastatin Calcium) 40 Mg Tablet 1 TAB PO DAILY for 30 Days, #30 TAB 0 Refills (Changed from: Atorvastatin Calcium (LIPITOR tablet) 20 Mg Tablet 1 Tab PO HS 30 Days #30 TAB Ref 0) Continued Medications: Methadone Hcl* (Dolophine*) 10 Mg Tablet 22.5 MG PO BID for pain for 5 Days, #15 TAB Discharge Summary: A 54-year-old male with remote use of marijuana presented to the ED with abdominal pain, nausea and vomitings. Patient continued to be drowsy at his until one day after the admission. On on further imaging and laboratory, lipase was negative, CT imaging was completely normal. U tox was positive for marijuana indicating patient had cannabinoid induced hyperemesis syndrome. After waking up patient gives a history that was doubtful about stable angina and with risk factors of family history age and hyperlipidemia patient was evaluated for chest pain and stable angina. Initially with the patient came into troponins and EKG was completely normal ruling out ACS in the moment. Lexiscan was negative for any reversible ischemia therefore patient is discharged home as he is hemodynamically stable. Physical examination at discharge: General: Alert, awake, oriented, not in acute distress HEENT: PERRLA, no icterus, pallor, lymphadenopathy, carotid bruit Respiratory system: Bilateral vesicular breath sounds heard, no adventitious breath sounds CVS: S1-S2 heard, no murmurs/rubs/gallop GI: Soft, nontender, no organomegaly, no guarding/rigidity, bowel sounds present Neuro: No focal neurological deficits present, no spine tenderness Extremities: No edema cyanosis clubbing/deformities Skin: Warm and dry Labs at discharge: WBC: 11.9 H/H: 1.3/37.2 PLATELET COUNT: 239 Sodium: 144, potassium: Four, BUN: Seven, creatinine: 1.01 Imaging: Stress test: No reversible defect. Fixed inferoseptal defect versus diaphragmatic attenuation Echo: LVEF is 60-65%. RVSP: 34 mmHg Abdomen/pelvis CT: Hepatomegaly with fatty infiltration. Umbilical hernia containing fat. Fecal retention in the colon consistent with constipation. No obstructive uropathy. Chest x-ray:No evidence of acute cardiopulmonary disease. Discharge medications can be found above and patient is discharged home with the following recommendations: Follow up with your primary care within two weeks of discharge Follow up with marketing project manager if you continue to have chest pain We performed Lexiscan scan which is negative We increased your dose of statin to 40 mg daily We gave you pantoprazole 40 mg once daily Strong recommendation to quit marijuana Return to ER in view of chest pain, abdominal pain, palpitations, shortness of breaths *Problems/Diagnosis: (1) Nausea and vomiting Status: Resolved (2) Intractable vomiting Status: Acute Total Time Spent on D/C: > 30 Minutes Date of Service: November 09, 2024 Billing Provider: ELVI MCLEOD MD, SIVA, RES November 09, 2024 14:21
== END 2024-11-09 15:39 | disposition home or self-care (01) | DRG 392 ==
LOC: ER 22:49 → ED HOLD 11-07 04:43 → SUR 3N 11-07 09:45
PROVIDERS: ADMIT Internal Medicine Critical Care Medicine; ATTEND Internal Medicine Critical Care Medicine
PROC: 4A02XM4 Measurement of Cardiac Total Activity, External Approach (ICD-10-PCS; principal; 2024-11-09)
PROC: 3E033HZ Introduction of Radioactive Substance into Peripheral Vein, Percutaneous Approach (ICD-10-PCS; 2024-11-09)
DX: K29.00 Acute gastritis without bleeding (principal); K21.9 Gastro-esophageal reflux disease without esophagitis; K76.0 Fatty (change of) liver, not elsewhere classified; R11.2 Nausea with vomiting, unspecified; K42.9 Umbilical hernia without obstruction or gangrene; F12.10 Cannabis abuse, uncomplicated; E78.5 Hyperlipidemia, unspecified; D72.828 Other elevated white blood cell count; Z79.899 Other long term (current) drug therapy
CPT/HCPCS: 36415; 71045; 74176; 78452; 80048; 80053; 80061; 80305; 80320; 81001; 83036; 83690; 83735; 83880; 84132; 84145; 84484; 85025; 87081; 93005; 93017; 93306; 96365; 96372; 96375; 96376; 99285; A9500; G0378; J1630; J1650; J2405; J2470; J2785; J3490; J7030